=== PATIENT | male | born 1985 | race African-American/Black ===

== ENCOUNTER 2025-02-18 14:27 | Emergency (ER) | payer OTHER, SELFPAY ==
--- OUTSIDE RECORDS SUMMARY | 2025-01-07 05:40 | XMS_ITS ---
Author Organization [facility] Address [address] [place] [address] Care Team Providers Care Senior Javascript Engineer Name Role Phone Melecio Early Primary Care Provider [phone] Denise Frazier Unavailable [phone] REASON FOR VISIT 6 Week Psych F/U & Med Refill Medications Medication SIG (Take, Route, Frequency, Duration) Notes Start Date End Date Status Omeprazole 20 MG 1 capsule 1/2 to 1 hour before morning meal Orally Once a day; Duration: 30 days on unit 10/02/2024 Active Melatonin 5 MG 1 tablet in the evening Orally Once a day; Duration: 30 days As needed Active Cephalexin 500 MG 1 capsule Orally 4 times a day; Duration: 5 days TAKE ALL DOSES 11/30/2024 Active QUEtiapine Fumarate 50 MG 1 tablet at bedtime Orally Once a day; Duration: 7 days pt will need an appointment for further refills. Active hydrOXYzine HCl 25 MG 1 tablet as needed Orally twice a day; Duration: 30 days Pt on CRU, please deliver Not-Taking Encounters Encounter Location Date Provider Diagnosis [facility] [address], [place] [address] 01/07/2025 Denise Frazier Plan Of Treatment No Information Progress Notes * MOIRA DenzelDOB:1985 (39 yo M)Acc No.[id number]:01/07/2025 UNLOCKED PROGRESS NOTE Patient: Denzel AMADOR Provider: José Miguel Frazier, MSN, NEEDLE POLISHER, PMHNP-BC :1985 A ge:39 Y S ex:Male Date:01/07/2025 Phone: Address:[address] , [facility] Pcp:Melecio Early Subjective: * Chief Complaints: * 1 . 6 Week Psych F/U & Med Refill. * Medical History: * Medications: T aking Omeprazole 20 MG Capsule Delayed Release 1 capsule 1/2 to 1 hour before morning meal Orally Once a day , Notes to Pharmacist: on unit, Taking Melatonin 5 MG Tablet 1 tablet in the evening Orally Once a day As needed, Taking Cephalexin 500 MG Capsule 1 capsule Orally 4 times a day TAKE ALL DOSES, Taking QUEtiapine Fumarate 50 MG Tablet 1 tablet at bedtime Orally Once a day , Notes to Pharmacist: pt will need an appointment for further refills., Not-Taking hydrOXYzine HCl 25 MG Tablet 1 tablet as needed Orally twice a day , Notes to Pharmacist: Pt on CRU, please deliver Objective: * Vitals: Assessment: Plan: * Treatment: * * Electronic signature of Selina Frazier on 02/18/2025 at 05:22 PM CDT Sign off status: Pending * Provider: José Miguel Frazier MSN, NEEDLE POLISHER, PMHNP-BC Date: 01/07/2025 Generated for Printing/Faxing/eTransmitting on: 02/18/2025 05:22 PM CDT
[2025-02-18] VITALS (8 sets, daily range): BP systolic 122–137; BP diastolic 58–77; PULSE 82–109; RESP 11–19; TEMP 36.6–37.1; O2SAT 95–100
--- NOTE | ~2025-02-18 | XR_ITS ---
EXAMINATION: XR chest 1V portable COMPARISON: No comparisons available. HISTORY: cough FINDINGS: The lungs are clear, no effusion. No pneumothorax. Heart is normal size. Mediastinal and hilar contours are within normal limits. Bony thorax no acute abnormality. Miscellaneous: None Impression: No acute cardiopulmonary abnormality. Reviewed, dictated and finalized at location A. Impression: No acute cardiopulmonary abnormality.
--- NOTE | ~2025-02-18 | CT_ITS ---
EXAMINATION: CT brain wo con DATE: 02/18/2025 17:42 INDICATION: Numbness to right arm. TECHNIQUE: Computed tomography (CT) of the head was performed without intravenous contrast. The mA was adjusted according to patient size. Iterative reconstruction technique was employed. The dose-length product was 681.00 mGy-cm. COMPARISON: None FINDINGS: There is no intracranial hemorrhage, acute infarction, or abnormal intracranial mass lesion. The ventricles are normal in size. There are old blowout fractures of the medial gant of the orbits bilaterally. There is mild mucosal thickening in the paranasal sinuses. The mastoid air cells are normal. IMPRESSION: 1. Normal brain. Reviewed, dictated and finalized at location K. IMPRESSION: 1. Normal brain.
--- NOTE | ~2025-02-18 | CT_ITS ---
EXAMINATION: CTA brain carotid DATE: 02/18/2025 17:43 INDICATION: Numbness to right arm. TECHNIQUE: Computed tomographic angiography (CTA) of the head was performed with 100 mL Omnipaque-350 intravenous contrast. CTA of the neck was performed with intravenous contrast. Automated exposure control and iterative reconstruction technique were employed. The dose-length product was 1280.40 mGy-cm. Maximum intensity projection and volume rendered 3D-reconstructions were created by the technologist on a separate workstation. COMPARISON: Head CT 02/18/2025 FINDINGS: HEAD CTA: There is no intracranial hemorrhage, acute infarction, or abnormal intracranial mass lesion. The ventricles are normal in size. There are blowout fractures of the medial gant of the orbits bilaterally. There is mild mucosal thickening in the paranasal sinuses. The mastoid air cells are normal. The vertebral arteries are codominant. There is no significant stenosis of basilar artery or the posterior cerebral arteries. There is no significant stenosis of the intracranial internal carotid arteries or anterior or middle cerebral arteries. Anterior communicating artery is normal. The posterior communicating arteries are normal. There is no aneurysm. NECK CTA: There are no pathologically enlarged lymph nodes. There is no significant stenosis of the vertebral arteries. There is no visible plaque in the proximal internal carotid arteries. There is 0% stenosis of the proximal right internal carotid artery relative to normal distal artery lumen diameter (NASCET criteria). There is 0% stenosis of the proximal left internal carotid artery relative to normal distal artery lumen diameter. There is moderate cervical spondylosis. IMPRESSION: 1. Normal brain. 2. No aneurysm or significant intracranial arterial stenosis. 3. 0% stenosis of the proximal internal carotid arteries relative to normal distal artery lumen diameters (NASCET criteria). Reviewed, dictated and finalized at location K. IMPRESSION: 1. Normal brain. 2. No aneurysm or significant intracranial arterial stenosis. 3. 0% stenosis of the proximal internal carotid arteries relative to normal dis jaxon artery lumen diameters (NASCET criteria).
--- OUTSIDE RECORDS SUMMARY | 2025-02-18 08:00 | XMS_ITS ---
Author Organization [facility] Address [address] [place] [address] Care Team Providers Care Stave Bolt Equalizer Name Role Phone Melecio Early Primary Care Provider Allergies No Known Allergies Results Component Value Reference Range Notes 14 Panel Urine Drug Screen Reviewed date:02/18/2025 01:50:21 PM Interpretation: Performing Lab: Notes/Report: THC POS ZAC neg MOP (OPI) neg AMP neg MET neg BAR neg BZO neg MDMA neg MTD neg OXY neg PCP neg BUP neg TCA neg FTY neg REASON FOR VISIT concerns/woke up an cant move arm very well. Medications Medication SIG (Take, Route, Frequency, Duration) Notes Start Date End Date Status hydrOXYzine HCl 25 MG 1 tablet as needed Orally twice a day; Duration: 30 days Pt on CRU, please deliver Not-Taking Omeprazole 20 MG 1 capsule 1/2 to 1 hour before morning meal Orally Once a day; Duration: 30 days on unit 10/02/2024 Not-Taking QUEtiapine Fumarate 50 MG 1 tablet at bedtime Orally Once a day; Duration: 7 days Active Melatonin 5 MG 1 tablet in the evening Orally Once a day; Duration: 30 days As needed Not-Taking Cephalexin 500 MG 1 capsule Orally 4 times a day; Duration: 5 days TAKE ALL DOSES 11/30/2024 Not-Taking QUEtiapine Fumarate 50 MG 1 tablet at bedtime Orally Once a day; Duration: 30 days Not-Taking Social History Tobacco Use: Social History Observation Description Date Details (start date - stop date) Current Smoker NA - NA Tobacco Control (Standard) Question Answer Notes Tobacco use: Current smoker Problems Problem Type SNOMED Code ICD Code Onset Dates Problem Status W/U Status Risk Notes Problem Right hemiparesis (700970577) Right hemiparesis (G81.91) Active confirmed Problem Alcohol use disorder (0345724551) Alcohol use disorder (F10.99) Active confirmed Vital Signs Weight 163.4 lbs 02/18/2025 Height 73 in 02/18/2025 BMI 21.56 kg/m2 02/18/2025 Blood pressure systolic 122 mm Hg 02/19/20 25 Blood pressure diastolic 78 mm Hg 025 Heart Rate 103 /min 02/18/2025 Oximetry 97 % 02/18/2025 Temperature 98.1 degrees Fahrenheit 02/19/20 25 Respiratory Rate 16 /min 02/18/2025 Encounters Encounter Location Date Provider Diagnosis [facility] [place] [address] 02/18/2025 Melecio Early Right hemiparesis G81.91 ; Alcohol use disorder F10.99 ; Stage 3a chronic kidney disease N18.31 ; Polycythemia D75.1 ; Cigarette smoker F17.210 and Exposure to potential infection Z20.9 Assessments Encounter Date Diagnosis (ICD Code) Assessment Notes Treatment Notes Treatment Clinical Notes Section Notes 02/18/2025 Right hemiparesis (ICD-10 - G81.91) 02/18/2025 Alcohol use disorder (ICD-10 - F10.99) 02/18/2025 Stage 3a chronic kidney disease (ICD-10 - N18.31) 02/18/2025 Polycythemia (ICD-10 - D75.1) 02/18/2025 Cigarette smoker (ICD-10 - F17.210) 02/18/2025 Exposure to potential infection (ICD-10 - Z20.9) Plan Of Treatment Future Test Test Name Order Date CT Scan : Head, without contrast 025 HIV Screen *HIV 1, 2 Ab, p24 Ag ([id number]) 02/18/2025 CBC With Differential/Platelet* 02/19/20 25 Hepatitis B Surface Antigen (HBsAg Scree n) 02/18/2025 Hepatitis C Virus Antibody w/Rflx to Archie ntitative Real-time PCR ([id number]) 02/18/2025 CMP 14 Comprehensive Metabolic Panel* UA/M w/rflx Culture, Routine 02/18/2025 Next Appt Details Follow Up: 2 Weeks, Reason: AFTER CT AND LAB Progress Notes * Denzel PIZARRODOB:1985 (39 yo M)Acc No.[id number]:02/18/2025 Progress Notes Patient: Denzel AMADOR Provider: Dank Early :1985 A ge:39 Y S ex:Male Date:02/18/2025 Phone: Address:[address], [facility] Check In:11:09 AM CEO & BOARD DIRECTOR Subjective: * Chief Complaints: * C oncerns/woke up an cant move arm very well. * HPI: D epression Screening: PHQ-9 L ittle interest or pleasure in doing things?Not at all F eeling down, depressed, or hopeless N ot at all T rouble falling or staying asleep, or sleeping too much N ot at all F eeling tired or having little energy N ot at all P oor appetite or overeating N ot at all F eeling bad about yourself or that you are a failure, or have let yourself or your family down N ot at all T rouble concentrating on things, such as reading the newspaper or watching television N ot at all M oving or speaking so slowly that other people could have noticed; or the opposite, being so fidgety or restless that you have been moving around a lot more than usual N ot at all T houghts that you would be better off or of hurting yourself in some way N ot at all T otal Score 0 Intervention D epression Screening Findings P ositive F ollow-Up for Depression P atient refused intervention S creening: Nelson Suicide Severity Rating Scale (LF) D o you want to initiate with S creener form 1 . Wish to be : Have you wished you were or wished you could go to sleep and not wake up? N o 2 . Suicidal Thoughts: Have you actually had any thoughts of killing yourself? N o 6 . Suicide Behavior Question: Have you ever done anything,started to do anything, or prepared to end your life? N o I nterpretation: L ow Risk P reventative Health and Wellness follow-up: . C SSRS Interpretation and Follow Up Plan: CSSRS Interpretation and Follow Up Plan C SSRS Screen documented using SF Y es R isk Disposition from SF L ow - No Follow Up Plan Required F ollow Up Plan N o Follow Up Plan required at this time. T imeframe of Screening T nilda I nterim History: ABOUT 26 HOURS AGO AWAKEND DURING NIGHT TO EARLY AM. AFFECTED RIGHT LEG WELL. HAD TO CRAWL. WAS NUMB WELL. WAS ABLE TO WALK AFTER 1-2 HOURS. WAS HAVING HEADACHES. WAS DRINKING ON AGAIN SINCE 3 DAYS AGO. HAD 12 BEERS ON BOTH 02/15 AND 02/16. DENIED INCONTINENCE OF STOOL. SMOKES ON PPD. HAD NOT BEEN DRINKING FOR 15 DAYS PRIOR TO 02/15/2025. RIGHT ARM IS STILL WEAK BUT RIGHT LEG IS IMPROVING. * ROS: B asic ROS: Admits W eakness. A dmits T ingling/Numbness. ? * Medical History: * Surgical History: N o Surgical History documented. * Hospitalization/Major Diagno stic Procedure: N o Hospitalization History. * Family History: F ather: alive. M other: alive. 2 sister(s) - healthy. 1 son(s) , 3 daughter(s) - healthy. . sister: bipolar cousin: schizophrenia. * Social History: P rimary Social History: L iving Arrangement L iving Arrangement: Dependent Living , Living with: Other: .. Alcohol Use A lcohol Use Frequency: W eekly or Daily T ype of alcohol consumed L iquor,Beer Q uanity consumed on those occasions M ore than 6 Illicit Substance Usage I llicit Substance Usage: N o Employment Status E mployment Status: E mployed [employer] Single Question Alcohol Screening H ow may times in the past year have you had (4 for women, or 5 for men) or more drinks in a day? 3 65 T obacco Use: T obacco Control (Standard) T obacco use: C urrent smoker * Medications: T akingQUEtiapine Fumarate 50 MG Tablet 1 tablet at bedtime Orally Once a day Taking QUEtiapine Fumarate 50 MG Tablet 1 tablet at bedtime Orally Once a day Not-TakinghydrOXYzine HCl 25 MG Tablet 1 tablet as needed Orally twice a day , Notes to Pharmacist: Pt on CRU, please deliverOmeprazole 20 MG Capsule Delayed Release 1 capsule 1/2 to 1 hour before morning meal Orally Once a day , Notes to Pharmacist: on unitMelatonin 5 MG Tablet 1 tablet in the evening Orally Once a day As neededCephalexin 500 MG Capsule 1 capsule Orally 4 times a day TAKE ALL DOSESQUEtiapine Fumarate 50 MG Tablet 1 tablet at bedtime Orally Once a day Medication List reviewed and reconciled with the patientNot-Taking hydrOXYzine HCl 25 MG Tablet 1 tablet as needed Orally twice a day , Notes to Pharmacist: Pt on CRU, please deliverNot-Taking Omeprazole 20 MG Capsule Delayed Release 1 capsule 1/2 to 1 hour before morning meal Orally Once a day , Notes to Pharmacist: on unitNot- Taking Melatonin 5 MG Tablet 1 tablet in the evening Orally Once a day As neededNot- Taking Cephalexin 500 MG Capsule 1 capsule Orally 4 times a day TAKE ALL DOSESNot- Taking QUEtiapine Fumarate 50 MG Tablet 1 tablet at bedtime Orally Once a day Medication List reviewed and reconciled with the patient * Allergies: N .K.D.A.no[Allergies Verified] Objective: * Vitals: I nitials: TT, Wt:163.4, Ht: 73, BMI:21.56, BP:122/78, HR:103, Oxygen sat %:97, Temp:98.1, RR:16, Pain scale:0. * Examination: G eneral Examination: GENERAL APPEARANCE: w ell developed, well nourished, in no acute distress. HEAD: n ormocephalic, atraumatic. EYES: P ERRLA, sclera and conjunctiva clear. EARS External ears intact. NOSE: n teo patent, no lesions, septum intact. ORAL CAVITY: m ucosa moist. THROAT: n o erythema, no exudate, pharynx normal. NECK/THYROID: n o JVD, no goiter. SKIN: w arm and dry, no rashes. HEART: r egular rate and rhythm, no murmurs. LUNGS: r espirations regular and easy, clear to auscultation bilaterally. ABDOMEN: b owel sounds present, soft, nontender, nondistended, no masses palpable, no organomegaly . MUSCULOSKELETAL: n o joint deformity, swelling, redness, or warmth . EXTREMITIES: n o clubbing, cyanosis, or edema. NEUROLOGIC: c ranial nerves 2-12 grossly intact, HYPOREFLEXIC ON RIGHT VS LEFT, 3/5 PROXIMAL AND 4/5 DISTAL RUE STRENGTH, 4/5 RLE STRENGTH, RIGHT PRONATOR DRIFT, FTN INTACT, GAIT RIGHT HEMIPARETIC, STATION NL. Assessment: * Assessment: 1. R ight hemiparesis - G81.91 (Primary) 2 . A lcohol use disorder - F10.99? 3. S tage 3a chronic kidney disease - N18.31 4 . P olycythemia - D75.1 5 . C igarette smoker - F17.210 6 . E xposure to potential infection - Z20.9 Plan: * Treatment: 2. A lcohol use disorder L AB: 14 Panel Urine Drug Screen (Collection Date & Time - 02/18/2025) Value Reference Range T HC POS * C OC neg * M OP (OPI) neg * A MP neg * M ET neg * B AR neg * B ZO neg * M DMA neg * M TD neg * O XY neg * P CP neg * B UP neg * T CA neg * F TY neg 3.?Stage 3a chronic kidney disease?LAB: CMP 14 Comprehensive Metabolic Panel* (Ordered for 02/18/2025) (Collection Date & Time - 02/18/2025) ?LAB: UA/M w/rflx Culture, Routine (Ordered for 02/18/2025) (Collection Date & Time - 02/18/2025)4.?Polycythemia?LAB: CBC With Differential/Platelet* (Ordered for 02/18/2025) (Collection Date & Time - 02/18/2025)5.?Exposure to potential infection?LAB: HIV Screen *HIV 1, 2 Ab, p24 Ag ([id number]) (Ordered for 02/18/2025) (Collection Date & Time - 02/18/2025) ?LAB: Hepatitis B Surface Antigen (HBsAg Screen) (Ordered for 02/18/2025) ?LAB: Hepatitis C Virus Antibody w/Rflx to Quantitative Real-time PCR ([id number]) (Ordered for 02/18/2025) * Recommended Wellness and Pre vention Guidelines: * S tuan alvaradot L ast Done N ext Due A ction Taken N ONCOMPLIANT A lcohol use screening - 0 02/18/2025 - - N ONCOMPLIANT H IV screening - 0 02/18/2025 - - N ONCOMPLIANT S moking cessation intervention - 0 02/18/2025 - - * Procedure Codes: 9 9000 SPECIMEN HANDLING * Preventive Medicine: Counseling: S MOKING: Patient counselled on the dangers of tobacco use and urged to quit. . * Follow Up: 2 Weeks (Reason: AFTER CT AND LAB) * * Sign off status: Completed true * Provider: Dank Early Date: 02/18/2025 Generated for Ambrosio serrano/Antonio/Shahriar on: 0 02/18/2025 05:21 PM CDT History and Physical Notes * HPI (History of Present Illness) Category Sub-Category Detail Notes Category Not es Interim History ABOUT 26 HOURS AGO AWAKEND DURING NIGHT TO EARLY AM. AFFECTED RIGHT LEG WELL. HAD TO CRAWL. WAS NUMB WELL. WAS ABLE TO WALK AFTER 1-2 HOURS. WAS HAVING HEADACHES. WAS DRINKING ON AGAIN SINCE 3 DAYS AGO. HAD 12 BEERS ON BOTH 02/15 AND 02/16. DENIED INCONTINENCE OF STOOL. SMOKES ON PPD. HAD NOT BEEN DRINKING FOR 15 DAYS PRIOR TO 02/15/2025. RIGHT ARM IS STILL WEAK BUT RIGHT LEG IS IMPROVING. Depression Screening PHQ-9 Little interest or pleasure in doing things: Not at all Feeling down, depressed, or hopeless: No t at all Trouble falling or staying asleep, or sl eeping too much: Not at all Feeling tired or having little energy: N ot at all Poor appetite or overeating: Not at all Feeling bad about yourself o r that you are a failure, or have let yourself or your family down: Not at all Trouble concentrating on thi ngs, such as reading the newspaper or watching television: Not at all Moving or speaking so slowly that other people could have noticed; or the opposite, being so fidgety or restless that you have been moving around a lot more than usual: Not at all Thoughts that you would be b adeline off or of hurting yourself in some way: Not at all Total Score: 0 Intervention Depression Screening Findings: P ositive Follow-Up for Depression: Patient refuse d intervention Screening Nelson Suicide Sev erity Rating Scale (LF) Do you want to initiate with: Screener form 1. Wish to be : Have you wished you were or wished you could go to sleep and not wake up?: No 2. Suicidal Thoughts: Have you actually had any thoughts of killing yourself?: No 6. Suicide Behavior Question: Have you ever done anything,started to do anything, or prepared to end your life?: No Interpretation:: Low Risk Preventative Health and Wellness follow-up . CSSRS Interpretation and Follow Up Plan CSSRS Interpretation and Follow Up Plan CSSRS Screen documented using SF: Yes Risk Disposition from SF: Low - No Follo w Up Plan Required Follow Up Plan: No Follow Up Plan requir ed at this time. Timeframe of Screening: Today Examination Category Sub-Category Detail Notes Category Not es General Examination GENERAL APPEARANCE: well dev eloped, well nourished, in no acute distress HEAD: normocephalic, atrau matic EYES: PERRLA, sclera and c onjunctiva clear EARS External ears intact NOSE: nares patent, no les ions, septum intact THROAT: no erythema, no exud ate, pharynx normal NECK/THYROID: no JVD, no goiter HEART: regular rate and rhy thm, no murmurs LUNGS: respirations regular and easy, clear to auscultation bilaterally ABDOMEN: bowel sounds present , soft, nontender, nondistended, no masses palpable, no organomegaly NEUROLOGIC: cranial nerves 2-12 grossly intact, HYPOREFLEXIC ON RIGHT VS LEFT, 3/5 PROXIMAL AND 4/5 DISTAL RUE STRENGTH, 4/5 RLE STRENGTH, RIGHT PRONATOR DRIFT, FTN INTACT, GAIT RIGHT HEMIPARETIC, STATION NL SKIN: warm and dry, no guillermo hes EXTREMITIES: no clubbing, cyanosi s, or edema MUSCULOSKELETAL: no joint deformity, swelling, redness, or warmth ORAL CAVITY: mucosa moist
--- NOTE | 2025-02-18 16:26 | ECG_ITS ---
Test Date: 2025-02-18 16:35:34 Measurements Intervals [place] Rate: 82 P: 48 AK: 137 QRS: 37 QRSD: 78 T: 33 QT: 354 QTc: 414 Interpretive Statements SINUS RHYTHM POSSIBLE RIGHT VENTRICULAR CONDUCTION DELAY [RSR (QR) IN V1/V2] LEFT VENTRICULAR HYPERTROPHY ABNORMAL ECG No previous ECG available for comparison Electronically Signed On 02-19-2025 08:05:50 CDT by Shamir Thomson M.D.
--- NOTE | 2025-02-18 16:32 | ED.GENADULT ---
HPI - General Adult General Chief complaint: Extremity Problem,Nontraumatic Stated complaint: arm numbness since tuesday Time Seen by Provider: 02/18/25 15:46 History of Present Illness HPI narrative: Denzel Velasco is a 39-year-old male who presents today with complaints of having numbness tingling to his right arm from shoulder to his finger tips that he woke up with around 3:00 a.m. 2 days ago. He states that 2 days ago at around 3:00 a.m. he woke up and he had numbness to his right arm and his right leg he tried to get up and noticed it was really hard to walk because he could feel his leg he states that the numbness in his leg improved and now he does has continued numbness to his right arm. He saw his primary care doctor today because he is concerned that he might have had a stroke and primary care doctor told to the ER to picture. At this time patient denies any other neuro deficits other than still feeling numbness tingling to his right arm but also states that is painful. Denies any trauma no fall. He admits to drinking EtOH frequently states he did not drink EtOH today. He states he does have a psych history and he is on medication for that otherwise he does not take any other medications daily. Related Data Allergies Allergy/AdvReac Type Severity Reaction Status Date / Time No Known Allergies Allergy Verified 02/18/25 14:34 Review of Systems Review of Systems: All systems reviewed & are unremarkable except as noted in HPI and below Exam Narrative: GENERAL: Well-appearing, well-nourished, and in no acute distress. HEAD: Normocephalic, atraumatic. EYES: PERRLA and EOMI. ENT: Nares clear, no rhinorrhea or epistaxis. Mucous membranes moist. Oropharynx without tonsillar hypertrophy exudate or other lesions. NECK: Supple. No adenopathy or masses. No carotid bruits or JVD CHEST: Clear to auscultation. No respiratory distress. No wheezes rales or rhonchi HEART: Regular rate and rhythm. No murmur heard. Normal peripheral pulses. ABDOMEN: Soft, nontender, nondistended, normal active bowel sounds. EXTREMITIES: Normal range of motion. No edema. SKIN: Warm, dry, no rash. NEURO: No focal deficits. Alert and oriented x3. PSYCH: Normal mood and affect. Course Vital Signs Vital signs: Vital Signs Temperature 37.1 C 02/18/25 14:31 Pulse Rate 109 H 02/18/25 14:31 Respiratory Rate 18 02/18/25 14:31 Blood Pressure 122/76 02/18/25 14:31 Pulse Oximetry 99 02/18/25 14:31 Oxygen Delivery Room Air 02/18/25 14:31 Temperature 37.1 C 02/18/25 14:31 Pulse Rate 82 02/18/25 15:24 Respiratory Rate 16 02/18/25 15:24 Blood Pressure 125/77 02/18/25 15:24 Pulse Oximetry 95 02/18/25 15:24 Oxygen Delivery Room Air 02/18/25 15:24 Medical Decision Making MDM Narrative Medical decision making narrative: 39-year-old male who presents today with complaints of having numbness tingling to his right upper extremity that started 2 days ago. On exam there is no obvious deformity, erythema, ecchymosis, edema to the right upper extremity. Range of motion is intact and neurovascular intact. 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 No arm drift CBC unremarkable, CMP noted to have a glucose of 55 patient given juice to drink troponin is negative urine positive for ketones UDS is negative ethanol was 130 his CTA head and neck with and without contrast is negative for any evidence of stroke chest x-ray is negative Patient is re-evaluated at 7:05 p.m. and states he is feeling better, he states that his right arm is feeling better, does not have any other new or worsening symptoms I updated him on the results he does admit to drinking alcohol before coming down and he feels comfortable being discharged home following up with his primary care doctor. Will check another blood sugar to make sure that stays up repeat blood sugars 81 Encouraged patient to return for any new or worsening symptoms otherwise follow-up with his primary care doctor in the next 3-5 days. Medical Records Medical records reviewed: Yes I reviewed the external patient's medical records. Vital Signs Vital Signs: Vital Signs Temperature 37.1 C 02/18/25 14:31 Pulse Rate 109 H 02/18/25 14:31 Respiratory Rate 18 02/18/25 14:31 Blood Pressure 122/76 02/18/25 14:31 Pulse Oximetry 99 02/18/25 14:31 Oxygen Delivery Room Air 02/18/25 14:31 Temperature 37.1 C 02/18/25 14:31 Pulse Rate 82 02/18/25 15:24 Respiratory Rate 16 02/18/25 15:24 Blood Pressure 125/77 02/18/25 15:24 Pulse Oximetry 95 02/18/25 15:24 Oxygen Delivery Room Air 02/18/25 15:24 Vitals reviewed Lab Data Lab results reviewed: Yes I reviewed the patient's lab results. 02/18/25 16:39 02/18/25 16:39 Labs: Lab Results 02/18/25 02/18/25 Range/Units 16:39 16:45 WBC 7.3 (4.5-10.0) K/mm3 RBC 4.46 L (4.6-6.20) M/mm3 Hgb 14.1 (14.0-18.0) g/dL Hct 43.3 (42.0-52.0) % MCV 97.1 (80-100) fl MCH 31.6 (26-34) pg MCHC 32.6 (32-36) g/dl RDW 12.7 (11.5-14.5) % Plt Count 325 (150-375) k/mm3 MPV 8.5 (7.4-10.4) fl Immature Gran % (Auto) 0.3 (0-0.5) % Neut % (Auto) 66.0 (45.5-73.1) % Lymph % (Auto) 27.0 (18.3-44.2) % [place] % (Auto) 5.9 (2.6-8.5) % Eos % (Auto) 0.1 (0-4.4) % Baso % (Auto) 0.7 (0.2-1.2) % Lymph # (Auto) 1.96 (0.9-3.2) K/mm3 [place] # (Auto) 0.4 (0.1-0.6) K/mm3 Eos # (Auto) 0.0 (0-0.3) K/mm3 Baso # (Auto) 0.1 (0.0-0.1) K/mm3 Abs Immat Gran (auto) 0.02 (0.00-0.031) K/mm3 Absolute Neuts (auto) 4.8 (1.3-6.7) K/mm3 Absolute Nucleated RBC 0.000 (0.0-0.012) K/mm3 Nucleated RBC % 0.0 (0.0-0.2) % Sodium 139 (137-145) mmol/L Potassium 4.5 (3.4-5.0) mmol/L Chloride 102 (98-107) mmol/L Carbon Dioxide 25 (22-30) mmol/L Anion Gap 12 (4-12) mmol/L BUN 11 (9-20) mg/dL Creatinine 0.83 (0.7-1.3) mg/dL Estim Creat Clear Calc 114 ml/min Estimated GFR > 60 (59 - ) Glucose 55 L* (65-110) mg/dL Calcium 9.1 (8.4-10.2) mg/dL Total Bilirubin 1.4 H (0.2-1.3) mg/dL AST 59 (17-59) U/L ALT 26 (6-50) U/L Alkaline Phosphatase 77 (38-126) U/L Troponin I < 0.012 (0.000-0.034) ng/mL Total Protein 7.7 (6.3-8.2) g/dL Albumin 4.7 (3.5-5.1) g/dL Urine Color Yellow (Yellow) Urine Appearance Clear (Clear) Urine pH 6.0 (5.0-9.0) Ur Specific [place] 1.026 (1.001-1.035) Urine Protein Negative (Negative) mg/dL Urine Glucose (UA) Negative (Negative) mg/dL Urine Ketones 1+ H (Negative) mg/dL Ur Blood (Man) Negative (Negative) Urine Nitrate Negative (Negative) Urine Bilirubin Negative (Negative) Urine Urobilinogen 1.0 (<2.0) mg/dL Leukocyte Esterase Rfl Negative (Negative) SAFIA/UL Urine Opiates Screen Negative (Negative) Urine Methadone Screen Negative (Negative) Ur Barbiturates Screen Negative (Negative) Ur Phencyclidine Scrn Negative (Negative) Ur Amphetamine Screen Negative (Negative) U Benzodiazepines Scrn Negative (Negative) Urine Cocaine Screen Negative (Negative) U Cannabinoids Screen Negative (Negative) Ethyl Alcohol 130 (<10) mg/dL Imaging Data Radiologist's impression: Impressions Chest X-Ray 02/18/25 17:07 Impression: No acute cardiopulmonary abnormality. Head CT 02/18/25 17:43 IMPRESSION: 1. Normal brain. Head/Neck CTA 02/18/25 17:44 IMPRESSION: 1. Normal brain. 2. No aneurysm or significant intracranial arterial stenosis. 3. 0% stenosis of the proximal internal carotid arteries relative to normal distal artery lumen diameters (NASCET criteria). ECG Data EKG #1: ECG completion date: 02/18/25 ECG completion time: 16:35 Prior ECG tracings: not available for review Interpretation: 82 ND 137 QRSd 78 QT 354 QTc 414 --Four States-- P 48 QRS 37 T 33 SINUS RHYTHM POSSIBLE RIGHT VENTRICULAR CONDUCTION DELAY [RSR (QR) IN V1/V2] Discharge Plan Discharge Clinical Impression: Pain in right arm, ETOH abuse Patient Disposition: Home Condition: Stable Instructions: Antibiotic Form Additional Instructions: Please continue to follow-up with your PCP in the next 3-5 days. Your workup today was reassuring however if you do develop any new or worsening symptoms as we discussed return to the emergency department. Patient Language: [place]ill[place] Follow-up/Referrals: UNKNOWN,DOCTOR [Primary Care Provider] Melecio Early MD [Physician, Hospitalist] - 1 Week Time of Disposition: 19:16
[2025-02-18 16:52] LABS: Hematocrit 43.3 % (42.0-52.0); Hemoglobin 14.1 g/dL (14.0-18.0); Immature Granulocyte Percent A 0.3 % (0-0.5); Lymphocytes Absolute Auto 1.96 K/mm3 (0.9-3.2); Mean Corpuscular HGB Conc 32.6 g/dl (32-36); Mean Corpuscular Hemoglobin 31.6 pg (26-34); Mean Corpuscular Volume 97.1 fl (80-100); Nucleated Red Blood Cells Absolute Auto 0.000 K/mm3 (0.0-0.012); Nucleated Red Blood Cells Perc 0.0 % (0.0-0.2); Platelet Count Result 325 k/mm3 (150-375); Red Blood Count 4.46 M/mm3 (4.6-6.20); White Blood Count 7.3 K/mm3 (4.5-10.0)
[2025-02-18 16:54] LABS: Add Urine Microscopic? NO; Appearance Urine Clear (Clear); Glucose Urine UA Negative (Negative); Leukocyte Esterase Ur Negative LEU/UL (Negative); Nitrate Urine Negative (Negative); Specific Grav Ur 1.026 (1.001-1.035)
[2025-02-18 17:09] LABS: Alanine Aminotransferase 26 U/L (6-50); Albumin Level 4.7 g/dL (3.5-5.1); Alkaline Phosphatase 77 U/L (38-126); Anion Gap 12 mmol/L (4-12); Aspartate Amino Transferase 59 U/L (17-59); Bilirubin,Total 1.4 mg/dL (0.2-1.3); Blood Urea Nitrogen 11 mg/dL (9-20); Calcium 9.1 mg/dL (8.4-10.2); Carbon Dioxide 25 mmol/L (22-30); Chloride 102 mmol/L (98-107); Estimated CRCL calculation 114 ml/min; Estimated Glomerular Filt Rate > 60; Glucose 55 mg/dL (65-110); Potassium 4.5 mmol/L (3.4-5.0); Sodium 139 mmol/L (137-145); Total Protein 7.7 g/dL (6.3-8.2)
[2025-02-18 17:14] LABS: Troponin I < 0.012 ng/mL (0.000-0.034)
[2025-02-18 17:16] LABS: Cannabinoid Screen Urine Negative (Negative)
--- OUTSIDE RECORDS SUMMARY | 2025-02-18 17:22 | XMS_ITS | Clinical Summary ---
Author Organization [facility] Address [address] [place] [address] Care Team Providers Care [facility] Name Role Phone None, Provider MD Primary Care Provider Unavaila ble Allergies No known active allergies Social History Tobacco Use Types Packs/Day Years Used Date Smoking Tobacco: Every Day Cigarettes Smokeless Tobacco: Never Alcohol Use Standard Drinks/Week Comments Yes 8.3 (1 standard drink = 0.6 oz p ure alcohol) Sex and Gender Information Value Date Recorded Sex Assigned at Not on file Legal Sex Male 7:16 PM CDT Gender Identity Not on file Sexual Orientation Not on file Last Filed Vital Signs Vital Sign Reading Time Taken Comments Blood Pressure 154/109 10/10/2018 9:55 PM CDT Pulse 95 10/10/2018 9:55 PM CDT Temperature 37.7 C (99.8 F) 10/10/2018 9:55 PM CDT Respiratory Rate 18 10/10/2018 9:55 PM CDT Oxygen Saturation 96% 10/10/2018 9:55 PM CDT Inhaled Oxygen Concentration - - Weight 78 kg (172 lb) 10/10/2018 9:55 PM CDT Height 185.4 cm (6' 1) 10/10/2018 9:55 PM CDT Body Mass Index 22.69 10/10/2018 9:55 PM CDT Plan of Treatment Health Maintenance Due Date Last Done Comments Annual Physical 1988 Hepatitis C 08/27/2003 DTaP, Tdap and Td Vaccines ( 1 - Tdap) 2004 Hepatitis B Vaccines (1 of 3 - 19+ 3-dose series) 2004 HPV Vaccines (1 - 3-dose SCD M series) 2012 COVID-19 Vaccine (2023-2 5 season) 2025 Meningococcal B Vaccine Aged Out No l onger eligible based on patient's age to complete this topic Meningococcal Vaccine Aged Out No iris ora eligible based on patient's age to complete this topic Pneumococcal Vaccine: Pediat rics (0 to 5 Years) and At-Risk Patients (6 to 49 Years) Aged Out No longer eligible b ased on patient's age to complete this topic RSV Immunizations Under 20 Months Aged Out No longer eligible based on patient's age to complete this topic Care Teams [facility] Relationship Specialty Start Date End Date None, Provider, PCP - General 10/10/18
--- OUTSIDE RECORDS SUMMARY | 2025-02-18 17:22 | XMS_ITS | Patient Health Record ---
Author Organization [facility] Address [address] [place] [address] Care Team Providers Care Biochemist Name Role Phone Melecio Early Primary Care Provider Esa Duong Unavailable [phone] Zully Doran Unavailable [phone] Denise Frazier Unavailable [phone] Flavia Macario Unavailable [phone] Allergies No Known Allergies Results Component Value Reference Range Notes 14 Panel Urine Drug Screen Reviewed date:02/18/2025 01:50:21 PM Interpretation: Performing Lab: Notes/Report: THC POS ZAC neg MOP (OPI) neg AMP neg MET neg BAR neg BZO neg MDMA neg MTD neg OXY neg PCP neg BUP neg TCA neg FTY neg Phosphorus, Serum* Reviewed date:10/19/2024 09:28:56 AM Interpretation: Performing Lab:[facility], [address] [facility], Phone - [phone], Director - PhDHahnemann Hospitalkathii Notes/Report: Phosphorus 4.6 2.8-4.1 mg/dL Magnesium, Serum* Reviewed date:10/19/2024 09:28:45 AM Interpretation: Performing Lab:[facility] [place], [address] [facility], Phone - [phone], Director - PhDVernon Memorial Hospitalopali Notes/Report: Magnesium 2.8 1.6-2.3 mg/dL CBC With Differential/Platel et* Reviewed date:10/19/2024 09:29:20 AM Interpretation: Performing Lab[facility], [address] [facility], Phone - [phone], Director - Danisha Notes/Report: WBC 7.8 3.4-10.8 x10E3/uL RBC 5.97 4.14-5.80 x10E6/uL Hemoglobin 18.9 13.0-17.7 g/dL Hematocrit 57.3 37.5-51.0 % MCV 96 79-97 fL MCH 31.7 26.6-33.0 pg MCHC 33.0 31.5-35.7 g/dL RDW 11.7 11.6-15.4 % Platelets 370 150-450 x10E3/uL Neutrophils 68 Not Estab. % Lymphs 20 Not Estab. % Monocytes 10 Not Estab. % Eos 1 Not Estab. % Basos 1 Not Estab. % Neutrophils (Absolute) 5.3 1.4-7.0 x10E3/uL Lymphs (Absolute) 1.6 0.7-3.1 x10E3/uL Monocytes(Absolute) 0.8 0.1-0.9 x10E3/uL Eos (Absolute) 0.1 0.0-0.4 x10E3/uL Baso (Absolute) 0.1 0.0-0.2 x10E3/uL Immature Granulocytes 0 Not Estab. % Immature Grans (Abs) 0.0 0.0-0.1 x10E3/uL CMP 14 Comprehensive Metabol ic Panel* Reviewed date:10/19/2024 09:28:26 AM Interpretation: Performing Lab:[facility], [address] [facility], Phone - [phone], Director - Danisha Notes/Report: Glucose 84 70-99 mg/dL BUN 24 6-20 mg/dL Creatinine 1.28 0.76-1.27 mg/dL eGFR 73 >59 mL/min/1.73 BUN/Creatinine Ratio 19 9-20 Sodium 134 134-144 mmol/L Potassium 5.3 3.5-5.2 mmol/L Chloride 87 96-106 mmol/L Carbon Dioxide, Total 23 20-29 mmol/L Calcium 10.7 8.7-10.2 mg/dL Protein, Total 8.2 6.0-8.5 g/dL Albumin 5.6 4.1-5.1 g/dL Globulin, Total 2.6 1.5-4.5 g/dL Bilirubin, Total 1.3 0.0-1.2 mg/dL Alkaline Phosphatase 88 44-121 IU/L AST (SGOT) 59 0-40 IU/L ALT (SGPT) 31 0-44 IU/L QuantiFERON-TB Gold Plus (18 2879) Reviewed date:10/19/2024 09:29:07 AM Interpretation: Performing Lab[facility] [address] [facility], Phone - [phone], Director - [facility] Notes/Report: QuantiFERON Incubation Incubation performed. QuantiFERON-TB Gold Plus Negative Negative No response to M tuberculosis antigens detected. Infection with M tuberculosis is unlikely, but high risk individuals should be considered for additional testing (ATS/IDSA/CDC Clinical Practice Guidelines, 2017). The reference range is an Antigen minus Nil result of <0.35 IU/mL. Chemiluminescence immunoassay methodology QuantiFERON Criteria QuantiFERON-TB Gold Plus is a qualitative indirect test for M tuberculosis infection (including disease) and is intended for use in conjunction with risk assessment, radiography, and other medical and diagnostic evaluations. The QuantiFERON-TB Gold Plus result is determined by subtracting the Nil value from either TB antigen (Ag) value. The Mitogen tube serves as a control for the test. QuantiFERON TB1 Ag Value 0.05 QuantiFERON TB2 Ag Value 0.05 QuantiFERON Nil Value 0.03 QuantiFERON Mitogen Value >10.00 12 Panel Urine Drug Screen Reviewed date:10/02/2024 11:16:56 AM Interpretation: Performing Lab: Notes/Report: THC neg ZAC neg MOP (OPI) neg AMP neg MET neg BAR neg BZO neg MDMA neg MTD neg OXY neg PCP neg BUP neg Breathalyzer Reviewed date:10/02/2024 11:17:59 AM Interpretation:0.000 Performing Lab: Notes/Report: 0.000 ISMA 0.000 Ultrasound : Renal Complete Reviewed date:12/17/2024 10:54:05 AM Interpretation: Performing Lab: Notes/Report: Renal Panel (10) Reviewed date:11/12/2024 11:23:44 AM Interpretation: Performing Lab:[facility], [address] [facility], [place], Phone - [phone], Director - [facility] Notes/Report: Glucose 64 70-99 mg/dL BUN 10 6-20 mg/dL Creatinine 1.03 0.76-1.27 mg/dL eGFR 95 >59 mL/min/1.73 BUN/Creatinine Ratio 10 9-20 Sodium 142 134-144 mmol/L Potassium 4.8 3.5-5.2 mmol/L Chloride 104 96-106 mmol/L Carbon Dioxide, Total 23 20-29 mmol/L Calcium 9.2 8.7-10.2 mg/dL Phosphorus 4.2 2.8-4.1 mg/dL Albumin 4.2 4.1-5.1 g/dL Hepatic Function Panel (7)* Reviewed date:11/12/2024 11:23:44 AM Interpretation: Performing Lab:[facility] [place], [address] [place] [address], Phone - [phone], Director - [facility] Notes/Report: Protein, Total 6.0 6.0-8.5 g/dL Bilirubin, Total 0.4 0.0-1.2 mg/dL Bilirubin, Direct 0.11 0.00-0.40 mg/dL Alkaline Phosphatase 62 44-121 IU/L AST (SGOT) 24 0-40 IU/L ALT (SGPT) 14 0-44 IU/L CBC With Differential/Platel et* Reviewed date:11/12/2024 11:23:44 AM Interpretation: Performing Lab:[facility] [place], [address] [facility], Phone - [phone], Director - [facility] Notes/Report: WBC 5.4 3.4-10.8 x10E3/uL RBC 4.55 4.14-5.80 x10E6/uL Hemoglobin 14.7 13.0-17.7 g/dL Hematocrit 45.8 37.5-51.0 % MCV 101 79-97 fL MCH 32.3 26.6-33.0 pg MCHC 32.1 31.5-35.7 g/dL RDW 12.3 11.6-15.4 % Platelets 317 150-450 x10E3/uL Neutrophils 59 Not Estab. % Lymphs 27 Not Estab. % Monocytes 8 Not Estab. % Eos 4 Not Estab. % Basos 1 Not Estab. % Neutrophils (Absolute) 3.2 1.4-7.0 x10E3/uL Lymphs (Absolute) 1.5 0.7-3.1 x10E3/uL Monocytes(Absolute) 0.5 0.1-0.9 x10E3/uL Eos (Absolute) 0.2 0.0-0.4 x10E3/uL Baso (Absolute) 0.0 0.0-0.2 x10E3/uL Immature Granulocytes 1 Not Estab. % Immature Grans (Abs) 0.0 0.0-0.1 x10E3/uL Erythropoietin (EPO), Serum Reviewed date:11/12/2024 11:23:44 AM Interpretation: Performing Lab:[facility] [place], [address] [facility], Phone - [phone], Director - [facility] Notes/Report: Erythropoietin 13.3 2.6-18.5 mIU/mL Virgilio Skimlinks DxI 800 Immunoassay System . Values obtained with different assay methods or kits cannot be used interchangeably. Results cannot be interpreted as absolute evidence of the presence or absence of malignant disease. UA/M w/rflx Culture, Routine Reviewed date:11/12/2024 11:23:44 AM Interpretation: Performing Lab:[facility] [place], [address] [facility], Phone - [phone], Director - [facility] Notes/Report: Specific [place] 1.024 1.005-1.030 pH 5.5 5.0-7.5 Urine-Color Yellow Yellow Appearance Clear Clear WBC Esterase Negative Negative Protein Negative Negative/Trace Glucose Negative Negative Ketones Negative Negative Occult Blood Negative Negative Bilirubin Negative Negative Urobilinogen,Semi-Qn 0.2 0.2-1.0 mg/dL Nitrite, Urine Negative Negative Microscopic Examination Micr oscopic follows if indicated. Microscopic Examination See below: Micr oscopic was indicated and was performed. Urinalysis Reflex This speci men will not reflex to a Urine Culture. WBC None seen 0 - 5 /hpf RBC None seen 0 - 2 /hpf Epithelial Cells (non renal) None seen 0 - 10 /hpf Casts None seen None seen /lpf Bacteria None seen None seen/Few Hemoglobin A1c* Reviewed date:10/10/2024 11:19:20 AM Interpretation: Performing Lab:[facility] [place], [address] [facility], [place], Phone - [phone], Director - PhDKahlil Notes/Report: Hemoglobin A1c 5.1 4.8-5.6 % . Prediabetes: 5.7 - 6.4 Diabetes: >6.4 Glycemic control for adults with diabetes: <7.0 Lipid Panel* Reviewed date:10/10/2024 11:18:45 AM Interpretation: Performing Lab:[facility] [place], [address] [place] [address], Phone - [phone], Director - Danisha Notes/Report: Cholesterol, Total 179 100-199 mg/dL Triglycerides 101 0-149 mg/dL HDL Cholesterol 50 >39 mg/dL VLDL Cholesterol Bertrand 18 5-40 mg/dL LDL Chol Calc ([facility]) 111 0-99 mg/dL Reason For Referral No Information Medications Medication SIG (Take, Route, Frequency, Duration) Notes Start Date End Date Status QUEtiapine Fumarate 50 MG 1 tablet at bedtime Orally Once a day; Duration: 30 days Not-Taking hydrOXYzine HCl 25 MG 1 tablet as [...] 5 days TAKE ALL DOSES 11/30/2024 Not-Taking Social History Tobacco Use: Social History Observation Description Date Details (start date - stop date) Current Smoker NA - NA Tobacco Control (Standard) Question Answer Notes Tobacco use: Current smoker Problems Problem Type SNOMED Code ICD Code Onset Dates Problem Status W/U Status Risk Notes Problem Insomnia (652683929) Insomnia (G47.00) Active confirmed Problem Posttraumatic stress disorder (57032987) PTSD (post-traumati c stress disorder) (F43.10) Active confirmed Problem Anxiety (89294127) Anxiety (F41.9) Active confirmed Problem Bipolar disorder (68704216) Bipolar disorder (F31.9) Active confirmed The differential diagnosis includes but is not limited to: Bipolar 1 vs Bipolar II. AUD seems to exacerbate prema symptoms. Problem Ethanol abuse (76060681) ETOH abuse (F10.10) Active confirmed Problem Polycythemia (550982851) Polycythemia (D75.1) Active confirmed Problem Alcohol use disorder (9099268404) Alcohol use disorder (F10.99) Active confirmed Problem Acid reflux (445691271) Acid reflux (K21.9) Active confirmed Problem Cigarette smoker (94873589) Cigarette smoker (F17.210) Active confirmed Problem Chronic kidney disease stage 3A (150475098) Stage 3a chronic kidney disease (N18.31) Active confirmed Problem Right hemiparesis (375427546) Right hemiparesis (G81.91) Active confirmed Vital Signs Heart Rate 103 /min 02/18/2025 Temperature 98.1 degrees Fahrenheit 02/18/2025 Respiratory Rate 16 /min 02/18/2025 Blood pressure diastolic 78 mm Hg 02/18/2025 Oximetry 97 % 02/18/2025 Height 73 in 02/18/2025 Blood pressure systolic 122 mm Hg 02/18/2025 Weight 163.4 lbs 02/18/2025 BMI 21.56 kg/m2 02/18/2025 Encounters Encounter Location Date Provider Diagnosis [facility] [address] [place] [address] 10/09/2024 Denise Frazier [facility] [address] [place] [address] 11/06/2024 Melecio Early [facility] [address] [place] [address] 10/02/2024 Zully Doran Adult general medical exam Z00.00 ; ETOH abuse F10.10 and Acid reflux K21.9 [facility] [address] [place] [address] 10/02/2024 Flavia Macario ETOH abuse F10.[address] [address] 10/04/2024 Denise Frazier Bipolar disorder F31.9 ; Insomnia G47.00 ; Anxiety F41.9 ; ETOH abuse F10.10 and PTSD (post-traumatic stress disorder) F43.[address] [address] 10/08/2024 Denise Freddie Insomnia G47.00 ; Bipolar disorder F31.9 ; Anxiety F41.9 ; ETOH abuse F10.10 ; PTSD (post-traumatic stress disorder) F43.10 and Therapeutic drug monitoring Z51.81 [facility] [address] [address] 10/15/2024 Denise Freddie Insomnia G47.00 ; Bipolar disorder F31.9 ; Anxiety F41.9 ; ETOH abuse F10.10 and PTSD (post-traumatic stress disorder) F43.10 [place] [address] [place] [address] 10/19/2024 Melecio Early Stage 3a chronic kidney disease N18.31 ; Abnormal liver enzymes R74.8 ; Polycythemia D75.1 and Cigarette smoker F17.210 [place] [address] [facility] [address] 11/02/2024 Melecio Early Stage 3a chronic kidney disease N18.31 ; Polycythemia D75.1 and Cigarette smoker F17.210 [facility] [address], [place] [address] 11/15/2024 Denise Freddie Insomnia G47.00 ; Bipolar disorder F31.9 ; Anxiety F41.9 ; ETOH abuse F10.10 and PTSD (post-traumatic stress disorder) F43.10 [place] [address] [facility] [place] [address] 11/30/2024 Melecio Early Furuncle L02.92 [facility] [address], [place] [address] 01/16/2025 Denise Freddie Bipolar disorder F31.9 ; Insomnia G47.00 ; Anxiety F41.9 ; ETOH abuse F10.10 and PTSD (post-traumatic stress disorder) F43.10 [place] [address] [place] [address] 02/18/2025 Melecio Early Right hemiparesis G81.91 ; Alcohol use disorder F10.99 ; Stage 3a chronic kidney disease N18.31 ; Polycythemia D75.1 ; Cigarette smoker F17.210 and Exposure to potential infection Z20.9 [facility] [address] [place] [address] 10/30/2024 Melecio Early [facility] [place] [address] 11/09/2024 Melecio Early [address] [address] 12/31/2024 Denise Frazier Bipolar disorder F31.[address] [address] 11/02/2024 Melecio Early Acid reflux K21.9 and Insomnia G47.[address] [address] 11/13/2024 Denisejeannette Leonardssian [address] [address] 12/17/[address] [address] 01/09/2025 Melecio Early Bipolar disorder F31.9 and Furuncle L02.92 Assessments Encounter Date Diagnosis (ICD Code) Assessment Notes Treatment Notes Treatment Clinical Notes Section Notes 10/19/2024 Stage 3a chronic kidney disease (ICD-10 - N18.31) ETIOLOGY UNCLEAR 11/02/2024 Stage 3a chronic kidney disease (ICD-10 - N18.31) 11/30/2024 Furuncle (ICD-10 - L02.92) 02/18/2025 Right hemiparesis (ICD-10 - G81.91) 02/18/2025 Alcohol use disorder (ICD-10 - F10.99) 11/15/2024 Bipolar disorder (ICD-10 - F31.9) The differential diagnosis includes but is not limited to: Bipolar vs. substance induced psychosis 01/16/2025 Insomnia (ICD-10 - G47.00) 01/16/2025 Bipolar disorder (ICD-10 - F31.9) The differential diagnosis includes but is not limited to: Bipolar 1 vs Bipolar II. AUD seems to exacerbate prema symptoms. 12/31/2024 Bipolar disorder (ICD-10 - F31.9) 01/09/2025 Bipolar disorder (ICD-10 - F31.9) 11/02/2024 Acid reflux (ICD-10 - K21.9) 11/15/2024 Insomnia (ICD-10 - G47.00) 11/02/2024 Polycythemia (ICD-10 - D75.1) 10/19/2024 Abnormal liver enzymes (ICD-10 - R74.8) LIKELY DUE TO ALCOHOL 10/02/2024 Adult general medical exam (ICD-10 - Z00.00) 10/02/2024 ETOH abuse (ICD-10 - F10.10) 10/04/2024 Insomnia (ICD-10 - G47.00) 10/02/2024 ETOH abuse (ICD-10 - F10.10) 10/04/2024 Bipolar disorder (ICD-10 - F31.9) 10/08/2024 Insomnia (ICD-10 - G47.00) 10/15/2024 Insomnia (ICD-10 - G47.00) 10/08/2024 Bipolar disorder (ICD-10 - F31.9) Start Quetiapine. Take as prescribed. Reviewed purpose (mood stability), benefits, and risks - low blood pressure, metabolic syndrome with high cholesterol or high blood sugars, change in cardiac conduction, nausea, vomiting, temporary or permanent movement disorders, and akathisia. Call for problems with medication, side effects or need for dosage change. 10/04/2024 Anxiety (ICD-10 - F41.9) 10/02/2024 Acid reflux (ICD-10 - K21.9) 11/02/2024 Cigarette smoker (ICD-10 - F17.210) 10/15/2024 Bipolar disorder (ICD-10 - F31.9) 10/19/2024 Polycythemia (ICD-10 - D75.1) LIKELY DUE TO SMOKING 11/02/2024 Insomnia (ICD-10 - G47.00) 01/09/2025 Furuncle (ICD-10 - L02.92) 11/15/2024 Anxiety (ICD-10 - F41.9) 01/16/2025 Anxiety (ICD-10 - F41.9) 02/18/2025 Stage 3a chronic kidney disease (ICD-10 - N18.31) 01/16/2025 ETOH abuse (ICD-10 - F10.10) 02/18/2025 Polycythemia (ICD-10 - D75.1) 11/15/2024 ETOH abuse (ICD-10 - F10.10) 10/15/2024 Anxiety (ICD-10 - F41.9) 10/19/2024 Cigarette smoker (ICD-10 - F17.210) WILL USE PATCHES AND GUM FOR SMOKING CESSATION 10/04/2024 ETOH abuse (ICD-10 - F10.10) 10/08/2024 Anxiety (ICD-10 - F41.9) 10/08/2024 ETOH abuse (ICD-10 - F10.10) 10/04/2024 PTSD (post-traumatic stress disorder) (ICD-10 - F43.10) 10/15/2024 ETOH abuse (ICD-10 - F10.10) 11/15/2024 PTSD (post-traumatic stress disorder) (ICD-10 - F43.10) 01/16/2025 PTSD (post-traumatic stress disorder) (ICD-10 - F43.10) 02/18/2025 Cigarette smoker (ICD-10 - F17.210) 02/18/2025 Exposure to potential infection (ICD-10 - Z20.9) 10/15/2024 PTSD (post-traumatic stress disorder) (ICD-10 - F43.10) 10/08/2024 PTSD (post-traumatic stress disorder) (ICD-10 - F43.10) 10/08/2024 Therapeutic drug monitoring (ICD-10 - Z51.81) 10/02/2024 Other Continue treatment as recommended by [facility] staff. Encouraged patient to obtain routine medical care with patient's own primary care provider or establish as a patient at [facility] if no current primary care provider. 10/02/2024 Other Clinician met w ith client to assess needs for residential services. Clinician gathered information regarding historical presentation of mental health and substance use symptoms including withdrawal, HIV Risk assessment, psychiatric hospitalization history and presenting concern. Clinician conducted PHQ9 and CSSRS assessments as well as social drivers of health screening for the purposes of identifying additional service needs. 10/04/2024 Other Plan: -Continue Hydroxyzine 25 mg q4hrs PRN -Continue Melatonin 5 mg QHS PRN Next Visit: -Discussed with patient the risks vs. benefits of both Lamotrigine and an SGA (Seroquel most chavez-jalen's sister is on this). Patient wants a few days to research medication, he is not currently manic or a threat to himself/others and is being monitored on the CRU. -Follow up: 2-3 days [] Hard Rx handed to patient [] Rx phoned into pharmacy [] Rx faxed/e-prescribed into pharmacy [x] PDMP Reviewed [] [facility] Reviewed Encouraged by Denise CORONAHNP-BC to: [] consider utilizing therapist/counselor /social service assistant/psychologist , referral given [x] continue with therapist/counselor /social service assistant/psychologist Psychoeducation: -Treatment options discussed in detail with patient/guardian verbalizing understanding of treatment rationales. -Side effects and benefits of all medications prescribed discussed at length between psychiatric prescribing provider and patient/guardian along with the risks associated of [id number] interactions, including but not limited to prescription medications, OTC medications, vitamins, minerals and herbal supplements. -Patient/Guardian and provider dialogue showcased verbalized understanding from patient on rationales of medication risk vs benefits. 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 -Reduction of stress and anxiety to aid in focus and concentration discussed, again, with patient/guardian physically nodding, voicing understanding, and engaged in treatment plan with Denise JAMESP-BC. -Perceiving complete understanding of rationale by patient/guardian and willingness to adhere to formulated plan of care by prescriber with patient/guardian buy-in, willingness to participate actively in plan of care and willing to take charge of own care. -Although geared for female patients, all patients/guardians are informed by prescribing provider of risks of medications that could potentially be taken by female/women within their saxman of influence and that women who use medicine during have a higher chance of having a baby with defects. -Patient/Guardian denies being and/or knowing of women who are at present and denies wanting to become in the foreseeable future, 0-6 months from now. -Patient/Guardian again informed of the risk of pharmaceutical medications consumed during and how there are potential negative effects on the developing fetus. -Patient/Guardian verbalizes understanding of rationale and physically nods head in agreement that if a should occur, to consult with provider, WASHCOAT WIPER and/or Nurse It Support Manager to determine if prescribed medications should or should not be continued. -Instructions regarding both the medical/pharmacolog ical and non-pharmacologic aspects of the treatments employed were given, and the patient/guardian seemed to understand this. Risks and benefits of treatment, and of non-treatment, were also discussed. The patient/guardian understands the more frequent side effects associated with the medications. -The use of psychotherapy was addressed today and will continue on an as needed basis for the foreseeable future. The choice is, of course, ultimately left to the patient/guardian. -Patient/Guardian was encouraged to make a follow-up appointment for the next visit. -Additional treatment was discussed and has been addressed on an ongoing basis within the context of this patient's illness, resources, progress, and other appropriate factors. Being compliant with a regular exercise routine, consistent medication use, ongoing psychotherapy, eating and sleeping well, as well as the importance of handling stress, was discussed. 10/08/2024 Other May self-administer medications or be administered own oral medications per [facility] protocols. Provided informed consent with understanding of side effects, adverse effects, risks and benefits as well as alternative treatments as previously discussed and with the above recommended medications & other aspects of the treatment program. Agrees to return sooner if symptoms worsen or suicidal or homicidal ideations occur. Plan: -Start Quetiapine 50 mg QHS -Continue Melatonin 5 mg QHS PRN -Continue Hydroxyzine 25 mg q4hrs PRN *ordered fasting lipid panel and A1C -Follow up: 1 week [] Hard Rx handed to patient [] Rx phoned into pharmacy [x] Rx faxed/e-prescribed into pharmacy [] PDMP Reviewed [] [facility] Reviewed Encouraged by Denise Frazier PMHNP-BC to: [] consider utilizing therapist/counselor /social service assistant/psychologist , referral given [x] continue with therapist/counselor /social service assistant/psychologist Psychoeducation: -Treatment options discussed in detail with patient/guardian verbalizing understanding of treatment rationales. -Side effects and benefits of all medications prescribed discussed at length between psychiatric prescribing provider and patient/guardian along with the risks associated of [id number] interactions, including but not limited to prescription medications, OTC medications, vitamins, minerals and herbal supplements. -Patient/Guardian and provider dialogue showcased verbalized understanding from patient on rationales of medication risk vs benefits. 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 -Reduction of stress and anxiety to aid in focus and concentration discussed, again, with patient/guardian physically nodding, voicing understanding, and engaged in treatment plan with Denise Frazier [facility]. -Perceiving complete understanding of rationale by patient/guardian and willingness to adhere to formulated plan of care by prescriber with patient/guardian buy-in, willingness to participate actively in plan of care and willing to take charge of own care. -Although geared for female patients, all patients/guardians are informed by prescribing provider of risks of medications that could potentially be taken by female/women within their saxman of influence and that women who use medicine during have a higher chance of having a baby with defects. -Patient/Guardian denies being and/or knowing of women who are at present and denies wanting to become in the foreseeable future, 0-6 months from now. -Patient/Guardian again informed of the risk of pharmaceutical medications consumed during and how there are potential negative effects on the developing fetus. -Patient/Guardian verbalizes understanding of rationale and physically nods head in agreement that if a should occur, to consult with provider, WASHCOAT WIPER and/or Nurse It Support Manager to determine if prescribed medications should or should not be continued. -Instructions regarding both the medical/pharmacolog ical and non-pharmacologic aspects of the treatments employed were given, and the patient/guardian seemed to understand this. Risks and benefits of treatment, and of non-treatment, were also discussed. The patient/guardian understands the more frequent side effects associated with the medications. -The use of psychotherapy was addressed today and will continue on an as needed basis for the foreseeable future. The choice is, of course, ultimately left to the patient/guardian. -Patient/Guardian was encouraged to make a follow-up appointment for the next visit. -Additional treatment was discussed and has been addressed on an ongoing basis within the context of this patient's illness, resources, progress, and other appropriate factors. Being compliant with a regular exercise routine, consistent medication use, ongoing psychotherapy, eating and sleeping well, as well as the importance of handling stress, was discussed. 10/15/2024 Other May self-administer medications or be administered own oral medications per [facility] protocols. Provided informed consent with understanding of side effects, adverse effects, risks and benefits as well as alternative treatments as previously discussed and with the above recommended medications & other aspects of the treatment program. Agrees to return sooner if symptoms worsen or suicidal or homicidal ideations occur. Unable to complete full AIMS due to nature of appt, denies any irregular muscle movements or facial tics; no irregular movements observed during Zoom appt. Plan: -Continue Quetiapine 50 mg QHS -Continue Hydroxyzine 25 mg 1-2 tabs PRN *labs reviewed with patient -Follow up: 4 weeks [] Hard Rx handed to patient [] Rx phoned into pharmacy [x] Rx faxed/e-prescribed into pharmacy [] PDMP Reviewed [] [employer] Reviewed Encouraged by Denise Frazier PMHNP- to: [] consider utilizing therapist/counselor /social service assistant/psychologist , referral given [x] continue with therapist/counselor /social service assistant/psychologist Psychoeducation: -Treatment options discussed in detail with patient/guardian verbalizing understanding of treatment rationales. -Side effects and benefits of all medications prescribed discussed at length between psychiatric prescribing provider and patient/guardian along with the risks associated of tkag-sk-agcf interactions, including but not limited to prescription medications, OTC medications, vitamins, minerals and herbal supplements. -Patient/Guardian and provider dialogue showcased verbalized understanding from patient on rationales of medication risk vs benefits. 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 -Reduction of stress and anxiety to aid in focus and concentration discussed, again, with patient/guardian physically nodding, voicing understanding, and engaged in treatment plan with Denise Frazier [facility]. -Perceiving complete understanding of rationale by patient/guardian and willingness to adhere to formulated plan of care by prescriber with patient/guardian buy-in, willingness to participate actively in plan of care and willing to take charge of own care. -Although geared for female patients, all patients/guardians are informed by prescribing provider of risks of medications that could potentially be taken by female/women within their saxman of influence and that women who use medicine during have a higher chance of having a baby with defects. -Patient/Guardian denies being and/or knowing of women who are at present and denies wanting to become in the foreseeable future, 0-6 months from now. -Patient/Guardian again informed of the risk of pharmaceutical medications consumed during and how there are potential negative effects on the developing fetus. -Patient/Guardian verbalizes understanding of rationale and physically nods head in agreement that if a should occur, to consult with provider, WASHCOAT WIPER and/or Nurse It Support Manager to determine if prescribed medications should or should not be continued. -Instructions regarding both the medical/pharmacolog ical and non-pharmacologic aspects of the treatments employed were given, and the patient/guardian seemed to understand this. Risks and benefits of treatment, and of non-treatment, were also discussed. The patient/guardian understands the more frequent side effects associated with the medications. -The use of psychotherapy was addressed today and will continue on an as needed basis for the foreseeable future. The choice is, of course, ultimately left to the patient/guardian. -Patient/Guardian was encouraged to make a follow-up appointment for the next visit. -Additional treatment was discussed and has been addressed on an ongoing basis within the context of this patient's illness, resources, progress, and other appropriate factors. Being compliant with a regular exercise routine, consistent medication use, ongoing psychotherapy, eating and sleeping well, as well as the importance of handling stress, was discussed. 11/15/2024 Other May self-administer medications or be administered own oral medications per [facility] protocols. Provided informed consent with understanding of side effects, adverse effects, risks and benefits as well as alternative treatments as previously discussed and with the above recommended medications & other aspects of the treatment program. Agrees to return sooner if symptoms worsen or suicidal or homicidal ideations occur. Medication Hx: -denies medication hx Plan: -Continue Quetiapine 50 mg QHS *pt needs to be seen in person by 10/2025 *labs drawn 09/2024 -Follow up: 4 weeks [] Hard Rx handed to patient [] Rx phoned into pharmacy [x] Rx faxed/e-prescribed into pharmacy [] PDMP Reviewed [] [employer] Reviewed Encouraged by Denise Frazier [facility]- to: [x] consider utilizing therapist/counselor /social service assistant/psychologist , referral given [] continue with therapist/counselor /social service assistant/psychologist Psychoeducation: -Treatment options discussed in detail with patient/guardian verbalizing understanding of treatment rationales. -Side effects and benefits of all medications prescribed discussed at length between psychiatric prescribing provider and patient/guardian along with the risks associated of jucw-lg-fypv interactions, including but not limited to prescription medications, OTC medications, vitamins, minerals and herbal supplements. -Patient/Guardian and provider dialogue showcased verbalized understanding from patient on rationales of medication risk vs benefits. 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 -Reduction of stress and anxiety to aid in focus and concentration discussed, again, with patient/guardian physically nodding, voicing understanding, and engaged in treatment plan with Denise Frazier [facility]-. -Perceiving complete understanding of rationale by patient/guardian and willingness to adhere to formulated plan of care by prescriber with patient/guardian buy-in, willingness to participate actively in plan of care and willing to take charge of own care. -Although geared for female patients, all patients/guardians are informed by prescribing provider of risks of medications that could potentially be taken by female/women within their saxman of influence and that women who use medicine during have a higher chance of having a baby with defects. -Patient/Guardian denies being and/or knowing of women who are at present and denies wanting to become in the foreseeable future, 0-6 months from now. -Patient/Guardian again informed of the risk of pharmaceutical medications consumed during and how there are potential negative effects on the developing fetus. -Patient/Guardian verbalizes understanding of rationale and physically nods head in agreement that if a should occur, to consult with provider, WASHCOAT WIPER and/or Nurse It Support Manager to determine if prescribed medications should or should not be continued. -Instructions regarding both the medical/pharmacolog ical and non-pharmacologic aspects of the treatments employed were given, and the patient/guardian seemed to understand this. Risks and benefits of treatment, and of non-treatment, were also discussed. The patient/guardian understands the more frequent side effects associated with the medications. -The use of psychotherapy was addressed today and will continue on an as needed basis for the foreseeable future. The choice is, of course, ultimately left to the patient/guardian. -Patient/Guardian was encouraged to make a follow-up appointment for the next visit. -Additional treatment was discussed and has been addressed on an ongoing basis within the context of this patient's illness, resources, progress, and other appropriate factors. Being compliant with a regular exercise routine, consistent medication use, ongoing psychotherapy, eating and sleeping well, as well as the importance of handling stress, was discussed. 01/16/2025 Other May self-administer medications or be administered own oral medications per [facility] protocols. Provided informed consent with understanding of side effects, adverse effects, risks and benefits as well as alternative treatments as previously discussed and with the above recommended medications & other aspects of the treatment program. Agrees to return sooner if symptoms worsen or suicidal or homicidal ideations occur. Unable to complete AIMS due to nature of appt, denies any irregular muscle movements; would benefit from an in person appointment. Medication Hx: -denies medication hx Medication Plan: -Continue Quetiapine 50 mg QHS Treatment Plan: -If grogginess continues, consider switching to a different SGA with less risk of sedation. -Follow up: 2 months [] Hard Rx handed to patient [] Rx phoned into pharmacy [x] Rx faxed/e-prescribed into pharmacy [] PDMP Reviewed [] [employer] Reviewed Encouraged by Denise Frazier PMP-BC to: [] consider utilizing therapist/counselor /social service assistant/psychologist , referral given [] continue with therapist/counselor /social service assistant/psychologist Psychoeducation: -Treatment options discussed in detail with patient/guardian verbalizing understanding of treatment rationales. -Side effects and benefits of all medications prescribed discussed at length between psychiatric prescribing provider and patient/guardian along with the risks associated of npzs-zh-ldzz interactions, including but not limited to prescription medications, OTC medications, vitamins, minerals and herbal supplements. -Patient/Guardian and provider dialogue showcased verbalized understanding from patient on rationales of medication risk vs benefits. 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 -Reduction of stress and anxiety to aid in focus and concentration discussed, again, with patient/guardian physically nodding, voicing understanding, and engaged in treatment plan with Denise Frazier [facility]. -Perceiving complete understanding of rationale by patient/guardian and willingness to adhere to formulated plan of care by prescriber with patient/guardian buy-in, willingness to participate actively in plan of care and willing to take charge of own care. -Although geared for female patients, all patients/guardians are informed by prescribing provider of risks of medications that could potentially be taken by female/women within their saxman of influence and that women who use medicine during have a higher chance of having a baby with defects. -Patient/Guardian denies being and/or knowing of women who are at present and denies wanting to become in the foreseeable future, 0-6 months from now. -Patient/Guardian again informed of the risk of pharmaceutical medications consumed during and how there are potential negative effects on the developing fetus. -Patient/Guardian verbalizes understanding of rationale and physically nods head in agreement that if a should occur, to consult with provider, WASHCOAT WIPER and/or Nurse It Support Manager to determine if prescribed medications should or should not be continued. -Instructions regarding both the medical/pharmacolog ical and non-pharmacologic aspects of the treatments employed were given, and the patient/guardian seemed to understand this. Risks and benefits of treatment, and of non-treatment, were also discussed. The patient/guardian understands the more frequent side effects associated with the medications. -The use of psychotherapy was addressed today and will continue on an as needed basis for the foreseeable future. The choice is, of course, ultimately left to the patient/guardian. -Patient/Guardian was encouraged to make a follow-up appointment for the next visit. -Additional treatment was discussed and has been addressed on an ongoing basis within the context of this patient's illness, resources, progress, and other appropriate factors. Being compliant with a regular exercise routine, consistent medication use, ongoing psychotherapy, eating and sleeping well, as well as the importance of handling stress, was discussed. Plan Of Treatment Future Test Test Name Order Date CT Scan : Head, without contrast 025 HIV Screen *HIV 1, 2 Ab, p24 Ag ([id number]) 02/18/2025 CBC With Differential/Platelet* 02/19/20 25 Hepatitis B Surface Antigen (HBsAg Scree n) 02/18/2025 Hepatitis C Virus Antibody w/Rflx to Archie ntitative Real-time PCR ([id number]) 02/18/2025 CMP 14 Comprehensive Metabolic Panel* UA/M w/rflx Culture, Routine 02/18/2025 Insurance Providers Payer Name Payer Address Payer Phone Subscriber Number Group Number Insured Name Patient Relationship to Insured Coverage Start Date Coverage End Date MEDICAID [address] [place] [phone] [id number] Denzel Velasco Self - patient is the insured 5 MEDICAID [employer] UNDERGRADUATE ADVISOR [address] [place] [address] [id number] Denzel Velasco Self - patient is the insured 5 [employer]ICA[employer] [address] [place] [address] [id number] Denzel Velasco Self - patient is the insured 5 Medical (General) History Surgical History Surgery Date(Month/Year) Hospitalization History Reason Date(Month/Year)
--- OUTSIDE RECORDS SUMMARY | 2025-02-18 18:55 | XMS_ITS | Clinical Summary ---
Author Organization [facility] Address [address] [place] [address] Care Team Providers Care Advanced Practice Registered Nurse Name Role Phone None, Provider MD Primary [...] age to complete this topic Care Teams Advanced Practice Registered Nurse Relationship Specialty Start Date End Date None, Provider, PCP - General 10/10/18
== END 2025-02-18 20:35 | disposition home or self-care (01) ==
PROVIDERS: Emergency Provider Nurse Practitioner Family
DX: M79.601 Pain in right arm (principal); F10.10 Alcohol abuse, uncomplicated; Y90.6 Blood alcohol level of 120-199 mg/100 ml
CPT/HCPCS: 36415; 70450; 70496; 70498; 71045; 80053; 80307; 81003; 82077; 82948; 84484; 85025; 93005; 99284; Q9967